=== PATIENT | female | born 1955 | race African-American/Black ===

== ENCOUNTER 2025-05-28 09:10 | Day surgery (SDC) | payer MEDICARE ==
[2025-05-28] VITALS (18 sets, daily range): BP systolic 102–144; BP diastolic 50–85; PULSE 42–65; RESP 12–18; TEMP 97.6; O2SAT 82–94
[~2025-05-28] VITALS: Ht 172.7 cm; Wt 139.7 kg
--- NOTE | 2025-05-28 09:27 | ELECTROCARDIOGRAPH REPORT ---
[facility] Test Date: 2025-05-28 Test Time: 10:22:49 Pat Name: MIKE FAN Department: [facility] Patient ID: [id number] Room: Gender: F Psychologist Counseling: : 1955 Requested By: SUSANA MUÑOZ Order Number: [id number] Reading MD: Dr. ENDY Muñoz Measurements Intervals [place] Rate: 65 P: 0 [place]: 0 QRS: 9 QRSD: 114 T: -68 QT: 387 QTc: 403 Interpretive Statements Atrial flubber Anteroseptal infarct, age indeterminate ST depression V1-V3, suggest recording posterior leads Electronically Signed On 05-28-2025 17:45:[address] ENDY Muñoz Please click the below link to view image of tracing.
[2025-05-28] MEDS ORDERED: morphine 10mg/ml inj. IV ONE (09:30)
[2025-05-28] MEDS ORDERED: MIDAZolam 1mg/ml 10ml vial IV ONE (09:30)
[2025-05-28] MEDS ORDERED: normal saline 1000ml 1,000 ML IV SCH (09:30)
[2025-05-28] MEDS ORDERED: amiodarone 150mg/dext, iso-os 100 ML IV ONE (09:30)
[2025-05-28] MEDS ORDERED: atropine 0.1mg/ml 10ml syringe IV ONE (09:30)
[2025-05-28 10:35] LABS: MEAN PLATELET VOLUME 9.1 FL (7.4-10.4); RED CELL DISTRIBUTION WIDTH 17.7 % (11.5-14.5)
[2025-05-28] MEDS ORDERED: DIGO250T2 PO (10:38)
[2025-05-28] MEDS ORDERED: EMPA10TA PO (10:38)
[2025-05-28] MEDS ORDERED: AMIO200T76 PO (10:38)
[2025-05-28] MEDS ORDERED: METO-411 PO (10:38)
[2025-05-28] MEDS ORDERED: ALBU18HF2 INH (10:38)
[2025-05-28] MEDS ORDERED: FURO-149 PO (10:38)
[2025-05-28] MEDS ORDERED: EZET10TA80 PO (10:38)
[2025-05-28] MEDS ORDERED: APIX5TAB3 PO (10:38)
[2025-05-28] MEDS ORDERED: ATOR20TA66 PO (10:38)
[2025-05-28 10:45] LABS: CREATININE 2.04 MG/DL (0.40-0.90); TOTAL CARBON DIOXIDE 31.2 MMOL/L (24-32); eCRCL 25 ML/MIN; eGFR 29 ML/MIN
[2025-05-28 10:49] LABS: APTT 29 SECONDS (22-32); INR 1.2 INR
[2025-05-28] MEDS ORDERED: amiodarone 50MG/ML inj IV ONE (11:20)
[2025-05-28] MEDS ORDERED: midazolam 1 mg/ML 2ml injection ONE (11:21)
[2025-05-28] MEDS ORDERED: fentaNYL/PF 50MCG/1 ML 2ML syringe ONE (11:21)
[2025-05-28] MEDS ORDERED: atropine 0.1mg/ml 10ml syringe ONE ×2 (11:50→12:29)
[2025-05-28] MEDS ORDERED: DOPamine 400mg/D5W 250ml 250 ML IV ONE (11:51)
[2025-05-28] MEDS ORDERED: glucagon, human recombinant 1mg kit ONE (12:00)
[2025-05-28] MEDS ORDERED: ondansetron/PF 4mg/2ml inj ONE (12:06)
--- NOTE | 2025-05-28 12:39 | CARDIOLOGY REPORT ---
DATE OF SERVICE: 05/28/2025 DICTATING PHYSICIAN: ENDY Muñoz MD ELECTRICAL CARDIOVERSION DATE OF PROCEDURE: 05/28/2025 PRIMARY PHYSICIAN: Dr. Jesse Gould. AGRICULTURAL CHEMICALS INSPECTOR: Dr. Muñoz. INDICATION: The patient is a 70-year-old -[place] morbidly obese female with prediabetes, hypertension, hyperlipidemia, chronic diastolic heart failure, sick sinus syndrome with atrial flutter. She was hospitalized in 01/2025 with AFib with RVR. At that time, she was started on digoxin, amiodarone, metoprolol, and Eliquis. Subsequently, she saw me in my office as a new consultation on 05/16/2025. At that time, her digoxin was discontinued because of bradycardia; however, when she came for cardioversion, she appeared to be still on it. The patient cannot walk and she is in a wheelchair and a Orion lift. She is currently in a rehabilitation at [facility]. DESCRIPTION OF PROCEDURE: After discussing risks, benefits and alternative options, the patient decided to go ahead with the electrical cardioversion. Informed consent was obtained. Anterior and posterior patches used using biphasic electrical energy with a 200 joules x 1 converted to sinus rhythm. The patient had a prolonged pause with a heart rate in the 20. Subsequently, the patient was put on a temporary , transcutaneous pacer. We were able to successfully pace her at 60 beats per minute. Subsequently, the patient received atropine 1 mg q. 5 minutes x 2 and then put her on dopamine and 1 mg glucagon IV was given. Glucagon was given because patient was on 100 mg of metoprolol succinate p.o. b.i.d. at home Her heart rate improved to 70s and came to 100 per minute. At that time, gradually, the patient was weaned off of her dopamine. IMPRESSION: A 70-year-old female with persistent atrial flutter and fibrillation, converted to normal sinus rhythm and she had a severe bradycardia post conversion requiring IV atropine x 2 and dopamine and glucagon 1 mg IV x 1. The patient has her digoxin and was told not to take digoxin as recommended before. Her amiodarone dose was decreased to 200 mg once a day and metoprolol XL was decreased from 100 p.o. b.i.d. to 100 mg once a day. The patient was recommended to hold her medications, namely metoprolol if her heart rate was less than 50. Nursing staff was instructed to make sure that the her care provider at [facility] knows the current medication changes. Recommend diet, weight loss, and exercise program. ENDY Muñoz MD TID: [id number] RECEIPT: [id number] /[facility] cc: Jesse Gould MD MTDD
--- NOTE | 2025-05-28 13:09 | ELECTROCARDIOGRAPH REPORT ---
[facility] Test Date: 2025-05-28 Test Time: 14:04:59 Pat Name: MIKE FAN Department: [facility] Patient ID: [facility]-[id number] Room: Gender: F Review Appraiser: : 1955 Requested By: SUSANA MUÑOZ Order Number: [id number] Reading MD: Dr. ENDY Muñoz Measurements Intervals [place] Rate: 51 P: 0 [place]: 0 QRS: 99 QRSD: 128 T: 106 QT: 476 QTc: 439 Interpretive Statements Junctional rhythm IVCD, consider atypical RBBB Nonspecific T abnormalities, lateral leads Electronically Signed On 05-28-2025 17:45:[address] ENDY Muñoz Please click the below link to view image of tracing.
== END 2025-05-28 19:55 ==
LOC: SSTAY O 09:10
PROVIDERS: ATTEND Internal Medicine Cardiovascular Disease
DX: I48.92 Unspecified atrial flutter (principal); I48.19 Other persistent atrial fibrillation; I45.10 Unspecified right bundle-branch block; I25.2 Old myocardial infarction; I13.0 Hypertensive heart and chronic kidney disease with heart failure and stage 1 through stage 4 chronic kidney disease, or unspecified chronic kidney disease; N18.30 Chronic kidney disease, stage 3 unspecified; I50.32 Chronic diastolic (congestive) heart failure; E78.5 Hyperlipidemia, unspecified; G47.30 Sleep apnea, unspecified; M16.0 Bilateral primary osteoarthritis of hip; M17.0 Bilateral primary osteoarthritis of knee; Z86.711 Personal history of pulmonary embolism; Z79.01 Long term (current) use of anticoagulants; Z79.899 Other long term (current) drug therapy; Z90.49 Acquired absence of other specified parts of digestive tract; Z90.710 Acquired absence of both cervix and uterus; Z96.643 Presence of artificial hip joint, bilateral; Z98.891 History of uterine scar from previous surgery; Z82.3 Family history of stroke; Z83.3 Family history of diabetes mellitus
CPT/HCPCS: 36415; 80048; 85025; 85610; 85730; 92953; 92960; 93005; 99152; 99153; J0461; J1265; J2250; J2405; J3010; J7030; A4620; J0282